=== PATIENT | female | born 1975 | race Caucasian/White ===

== ENCOUNTER 2017-11-27 21:22 | Emergency (ER) | payer OTHER, MEDICAID, SELFPAY ==
[2017-11-27 21:31] VITALS: BP 128/75; PULSE 86; RESP 14; TEMP 36.9; O2SAT 99; BMI 35.4
[2017-11-27 22:00] VITALS: BP 130/87; PULSE 77; RESP 14; O2SAT 100
--- NOTE | 2017-11-27 22:33 | DI.RAD.S_ITS ---
PROCEDURE: XR CHEST 1V INDICATIONS: chest pain TECHNIQUE: One view of the chest was acquired. COMPARISON: None. FINDINGS: Surgical changes and devices: None. Lungs and pleura: No pleural effusions or pneumothorax. Lungs are clear. Mediastinum: Mediastinal contours appear normal. Heart size is normal. Bones and chest wall: No suspicious bony lesions. Overlying soft tissues appear unremarkable. IMPRESSION: No acute cardiopulmonary disease process. Dictated by: Kandace Whitney MD, PhD on 11/28/2017 at 8:50 Approved by: Kandace Whitney MD, PhD on 11/28/2017 at 8:50
[2017-11-27 22:45] LABS: D Dimer < 200 ng/mL (<230)
[2017-11-27 22:48] LABS: Add Manual Diff / Slide Review NO; Alanine Aminotransferase 24 IU/L (9-52); Albumin 4.2 g/dL (3.5-5.0); Albumin Globulin Ratio 1.2 (1.0-2.8); Alkaline Phosphatase 89 U/L (38-126); Aspartate Aminotransferase 30 IU/L (14-36); BUN Creatinine Ratio 12.7 (6-22); Basophils Percent Auto 0.4 % (0-2); Bilirubin Total 0.6 mg/dL (0.2-1.3); Blood Urea Nitrogen 14 mg/dL (7-17); Calcium 9.1 mg/dL (8.4-10.2); Carbon Dioxide 27 mmol/L (22-32); Chloride 104 mmol/L (98-107); Creatine Kinase 131 U/L (30-135); Eosinophils Percent Auto 1.5 % (2-4); Estimated Glomerular Filt Rate 54.7 mL/min (>60); Globulin 3.4 g/dL (1.7-4.1); Glucose 108 mg/dL (70-100); HEMOLYSIS < 15 (0-50); Hematocrit 38.6 % (36-46); Hemoglobin 13.2 g/dL (12.0-16.0); Lipase 160 U/L (23-300); Lymphocytes Percent Auto 27.2 % (25-40); Mean Corpuscular HGB Conc 34.3 % (30-36); Mean Corpuscular Hemoglobin 29.5 PG (26-34); Mean Corpuscular Volume 86.1 fL (80-100); Neutrophils Absolute Auto 6900 /uL (3000-5900); Neutrophils Percent Auto 64.9 % (50-75); Platelet Count 231 X10^3/uL (150-400); Potassium 3.8 mmol/L (3.4-5.1); Red Blood Cell Count 4.48 X10^6/uL (4.0-5.2); Red Cell Distribution Width 12.8 % (11.6-14.8); Sodium 142 mmol/L (137-145); Total Protein 7.6 g/dL (6.3-8.2); White Blood Cell Count 10.7 X10^3/uL (4.5-11.0)
[2017-11-27 22:54] VITALS: BP 137/92; PULSE 79; RESP 12
[2017-11-27] MEDS: SODIUM CHLORIDE 0.9% 1,000 ML 150 ML IV (22:59)
[2017-11-27] MEDS: ONDANSETRON 4 MG/2 ML INJ IV (22:59)
[2017-11-27 23:06] LABS: Troponin I < 0.012 ng/mL (0.01-0.034)
[2017-11-27 23:27] LABS: T4 Total Thyroxine 8.42 ug/dL (5.5-11.0)
--- NOTE | 2017-11-27 23:46 | ED_ITS ---
HPI - Chest Pain General Chief Complaint: Chest Pain Stated Complaint: CHEST PAIN, HOT FLASH UP LT SIDE OF NECK Time Seen by Provider: 11/27/17 21:30 Source: patient and family Mode of arrival: ambulatory Limitations: no limitations History of Present Illness HPI narrative: Patient presents with and chief complaint of L sided back pain which started yesterday. She states the pain is sharp and stabbing and radiates to her L chest and arm. She denies dizziness, weakness, SOB, fever or chills. She denies recent travel, history of blood clots, or the use of exogenous estrogen. She does complain of some hot, searing sensations on the left side of her face and. She does state that she has recently been painting the exterior of her house and extending her left arm along the shaft of an expandable paint roller ball using her right hand to stabilize. Her pain is worse when she palpates her chest there is minimal change when she uses her left arm. She did some brief palpitations yesterday. MD complaint: chest pain Onset (ago): day(s) Duration: constant Pain location: left chest Severity: moderate Quality: sharp Pain radiation: LUE and back Relieving factors: nothing Exacerbating factors: inspiration Treatments prior to arrival chest pain: none Related Data Previous Rx's Medication Instructions Recorded cyclobenzaprine 10 mg PO TID PRN #14 tab 11/27/17 ketorolac 10 mg PO Q6H PRN #14 tab 11/27/17 Allergies Allergy/AdvReac Type Severity Reaction Status Date / Time No Known Drug Allergies Allergy Verified 11/27/17 21:34 Review of Systems Review of Systems All systems reviewed & are unremarkable except as noted in HPI and below Constitutional Denies chills, Denies fever(s), Denies lethargy and Denies weakness Eyes Denies change in vision, Denies eye discharge, Denies irritation and Denies loss of vision ENT Ears, Nose, Mouth, and Throat: Denies change in voice, Denies neck pain and Denies sore throat Cardiovascular Reports chest pain, Denies irregular heart rhythm, Denies lightheadedness, Reports palpitations, Denies dyspnea, Denies dyspnea on exertion and Denies orthopnea Respiratory Denies cough, Denies dyspnea, Denies dyspnea on exertion and Denies wheezing Gastrointestinal Gastrointestinal: Denies abdominal pain, Denies change in bowel habits, Denies diarrhea, Denies nausea and Denies vomiting Genitourinary Denies hematuria, Denies flank pain, Denies urinary incontinence and Denies urinary urgency Musculoskeletal Reports back pain and Denies neck pain Integumentary/Breasts Denies pruritus, Denies erythema, Denies rash and Denies wounds Neurologic Denies confusion, Denies loss of vision and Denies weakness Psychiatric Denies anxiety, Denies confusion, Denies depression, Denies homicidal ideation and Denies suicidal ideation Endocrine Reports palpitations Hematologic/Lymphatic Denies easy bruising Allergic/Immunologic Denies wheezing [facility] Medical History Insomnia (Acute) Migraine (Acute) Exam Initial Vital Signs Initial Vital Signs: Vital Signs Temperature 98.4 F 11/27/17 21:31 Pulse Rate 86 11/27/17 21:31 Respiratory Rate 14 11/27/17 21:31 Blood Pressure 128/75 H 11/27/17 21:31 Pulse Oximetry 99 11/27/17 21:31 Const General: cooperative and well developed Nutritional Appearance: well nourished Orientation: alert, awake, oriented x3 and not confused [facility] Head: normocephalic and atraumatic Ears: external ears normal and TM's normal bilaterally Nose: external nose normal and No nasal discharge Face and sinus: sinuses nontender, face symmetric, no sinus tenderness and No dry mucous membranes Mouth: oral mucosae normal and moist mucous membranes Teeth and gingiva: dentition normal Throat: tonsils normal and uvula midline Eyes General: appearance normal, both eyes and all related structures Eyelids: eyelids normal Conjunctivae: conjunctivae normal Sclera: sclerae normal Pupils: PERRL EOM: EOM intact bilaterally Neck Neck: normal visual inspection, trachea midline, No lymphadenopathy, No midline deformity and No JVD Lymphatic: No lymphedema Chest Chest: normal inspection of the chest and tenderness (To palpation of left anterior chest) Resp Effort & Inspection: normal respiratory effort, able to speak in complete sentences, no respiratory distress and no use of accessory muscles Auscultation: clear to auscultation bilaterally, no rales, no rhonchi and no wheezes Cardio Rate: regular rate Rhythm: regular rhythm Heart Sounds: no click, no gallops, no murmurs and no rubs Pulses: normal peripheral pulses GI Inspection: non-distended Palpation: soft, no hepatosplenomegaly, No guarding, No pulsatile mass and No tender Auscultation: normal bowel sounds Back/Spine/Pelvis Back: No CVA tenderness Cervical Spine: cervical ROM normal and No pain with cervical ROM Thoracic/Lumbar Spine: thoraco-lumbar ROM normal and paraspinal tenderness (On left medial to the scapula) Skin General: no rashes or lesions noted, No jaundice and No petechiae Neuro General: alert, oriented x3, gait normal and no focal motor deficits Speech: speech normal Extrem General: full ROM, no clubbing, cyanosis or edema, no pedal edema and no calf tenderness Psych Appearance: well kempt Mental Status: mental status grossly normal Attitude: cooperative Thought Content: normal and suicidality Judgment: judgment good Course Orders Ordered: Discontinued Medications Cyclobenzaprine HCl (Flexeril 10 Mg Prepack) 1 bottle MISC SEEINSTR ONE Stop: 11/27/17 23:36 Last Admin: 11/27/17 23:53 Dose: 1 bottle Sodium Chloride (Normal Saline 0.9%) 1,000 mls @ 150 mls/hr IV CONT JOSEPH Last Admin: 11/27/17 22:59 Dose: 150 mls/hr Ondansetron HCl (Zofran) 4 mg IV NOW ONE Stop: 11/27/17 22:47 Last Admin: 11/27/17 22:59 Dose: 4 mg Vital Signs - 8 hr 11/27/17 21:31 11/27/17 22:00 11/27/17 22:54 Temperature 98.4 F Pulse Rate 86 77 79 Respiratory Rate 14 14 12 Blood Pressure 128/75 H Blood Pressure [Right Arm] 130/87 H 137/92 H Pulse Oximetry 99 100 MDM - Chest Pain Differential Diagnosis Likely pneumothorax, stable angina, unstable angina pectoris, atypical chest pain, st elevation myocardial infarction, costochondritis, chest pain and biliary colic Medical Records Data Attestation: I reviewed the patient's medical records. Lab Data Attestation: I reviewed the patient's lab results. Result diagrams: 11/27/17 22:05 11/27/17 22:05 Lab Results 11/27/17 11/27/17 11/27/17 Range/Units 22:05 22:05 22:05 WBC 10.7 (4.5-11.0) X10^3/uL RBC 4.48 (4.0-5.2) X10^6/uL Hgb 13.2 (12.0-16.0) g/dL Hct 38.6 (36-46) % MCV 86.1 (80-100) fL MCH 29.5 (26-34) PG MCHC 34.3 (30-36) % RDW 12.8 (11.6-14.8) % Plt Count 231 (150-400) X10^3/uL Neut % (Auto) 64.9 (50-75) % Lymph % (Auto) 27.2 (25-40) % Monroe % (Auto) 6.0 (3-14) % Eos % (Auto) 1.5 L (2-4) % Baso % (Auto) 0.4 (0-2) % Neut # (Auto) 6900 H (8932-3137) /uL D-Dimer < 200 (<230) ng/mL Sodium 142 (137-145) mmol/L Potassium 3.8 (3.4-5.1) mmol/L Chloride 104 (98-107) mmol/L Carbon Dioxide 27 (22-32) mmol/L BUN 14 (7-17) mg/dL Creatinine 1.10 H (0.52-1.04) mg/dL Estimated GFR 54.7 L (>60) mL/min BUN/Creatinine Ratio 12.7 (6-22) Glucose 108 H (70-100) mg/dL Calcium 9.1 (8.4-10.2) mg/dL Total Bilirubin 0.6 (0.2-1.3) mg/dL AST 30 (14-36) IU/L ALT 24 (9-52) IU/L Alkaline Phosphatase 89 (38-126) U/L Total Creatine Kinase 131 (30-135) U/L Troponin I < 0.012 (0.01-0.034) ng/mL Total Protein 7.6 (6.3-8.2) g/dL Albumin 4.2 (3.5-5.0) g/dL Globulin 3.4 (1.7-4.1) g/dL Albumin/Globulin Ratio 1.2 (1.0-2.8) Lipase 160 (23-300) U/L TSH (0.47-4.68) uIU/mL Thyroxine (T4) (5.5-11.0) ug/dL 11/27/17 Range/Units 22:05 WBC (4.5-11.0) X10^3/uL RBC (4.0-5.2) X10^6/uL Hgb (12.0-16.0) g/dL Hct (36-46) % MCV (80-100) fL MCH (26-34) PG MCHC (30-36) % RDW (11.6-14.8) % Plt Count (150-400) X10^3/uL Neut % (Auto) (50-75) % Lymph % (Auto) (25-40) % Monroe % (Auto) (3-14) % Eos % (Auto) (2-4) % Baso % (Auto) (0-2) % Neut # (Auto) (4037-6250) /uL D-Dimer (<230) ng/mL Sodium (137-145) mmol/L Potassium (3.4-5.1) mmol/L Chloride (98-107) mmol/L Carbon Dioxide (22-32) mmol/L BUN (7-17) mg/dL Creatinine (0.52-1.04) mg/dL Estimated GFR (>60) mL/min BUN/Creatinine Ratio (6-22) Glucose (70-100) mg/dL Calcium (8.4-10.2) mg/dL Total Bilirubin (0.2-1.3) mg/dL AST (14-36) IU/L ALT (9-52) IU/L Alkaline Phosphatase (38-126) U/L Total Creatine Kinase (30-135) U/L Troponin I (0.01-0.034) ng/mL Total Protein (6.3-8.2) g/dL Albumin (3.5-5.0) g/dL Globulin (1.7-4.1) g/dL Albumin/Globulin Ratio (1.0-2.8) Lipase (23-300) U/L TSH 2.80 (0.47-4.68) uIU/mL Thyroxine (T4) 8.42 (5.5-11.0) ug/dL ECG Data Attestation: I personally reviewed and interpreted this ECG as follows: Discharge Plan Departure Patient Disposition: Home Clinical Impression: Atypical chest pain Discharge Date/Time: 11/28/17 00:00 Interventions: ED Discharge Assessment Last Done: 11/28/17 00:00 Instructions: DI for Atypical Chest Pain Activity Restrictions/Additional Instructions: *You have been diagnosed with [ atypical chest pain ] *What to do: *Take medications as directed *Follow up with your primary care provider in 2-3 days, call for an appointment. Let them know you were seen in the Emergency Department and that we ask that you be seen in follow up *Return to ER if you should have any new, worsening or concerning symptoms , such as [ increasing chest pain, shortness of breath, fever or chills or other bothersome symptoms] Prescriptions: New cyclobenzaprine 10 mg tablet 10 mg PO TID PRN (Reason: muscle spasm) Qty: 14 RF: 0 ketorolac 10 mg tablet 10 mg PO Q6H PRN (Reason: pain) Qty: 14 RF: 0
[2017-11-27] MEDS: CYCLOBENZAPRINE 10 MG PREPACK 1 BOTTLE MISC (23:53)
[2017-11-28] VITALS: BP 137/92; PULSE 83; RESP 15; O2SAT 99
--- NOTE | 2017-12-30 01:23 | PC.NURSE ---
fluids stopped at discharge
== END 2017-11-28 | disposition home or self-care (01) ==
PROVIDERS: Emergency Provider Emergency Medicine
DX: R07.89 Other chest pain (principal)
CPT/HCPCS: 71045; 80053; 82550; 82553; 83690; 84436; 84443; 84484; 85025; 85379; 93005; 93010; 96361; 96374; 99283; 99285; J2405

== ENCOUNTER → 2020-05-16 10:50 | Outpatient (CLI) | payer OTHER, SELFPAY | PROVIDERS: Visit Provider Physician Assistant | DX: R10.9 Unspecified abdominal pain (principal) | CPT/HCPCS: 87086 ==